=== PATIENT | female | born 2000 | race Caucasian/White ===

== ENCOUNTER 2022-07-23 14:29 | Outpatient (CLI) | payer BC, SELFPAY ==
[2022-07-23 16:19] LABS: Glucose* 78 mg/dL (60-115)
[2022-07-23 16:20] LABS: HDL Cholesterol* 103 mg/dL (>=50); Triglycerides* 69 mg/dL (40-149)
[2022-07-24 19:07] LABS: Cholesterol* 215 mg/dL (90-199); LDL Cholesterol Calculated 98 mg/dL (<100)
== END 2022-07-23 14:30 | disposition home or self-care (01) ==
PROVIDERS: Visit Provider Registered Nurse
DX: Z13.6 Encounter for screening for cardiovascular disorders (principal); Z13.1 Encounter for screening for diabetes mellitus
CPT/HCPCS: 80061; 82947